=== PATIENT | female | born 1995 | race Caucasian/White ===

== ENCOUNTER → 2024-06-19 08:31 | Outpatient (REF) | payer OTHER, SELFPAY | LOC: WDC 08:31 | PROVIDERS: ATTENDING PHYSICIAN Obstetrics & Gynecology | DX: N63.20 Unspecified lump in the left breast, unspecified quadrant (principal); N64.4 Mastodynia | CPT/HCPCS: 76642 ==

== ENCOUNTER → 2024-12-24 14:29 | Outpatient (REF) | payer OTHER, SELFPAY | LOC: WDC 14:29 | PROVIDERS: ATTENDING PHYSICIAN Obstetrics & Gynecology; FAMILY PHYSICIAN Family Medicine | DX: R92.8 Other abnormal and inconclusive findings on diagnostic imaging of breast (principal); D24.9 Benign neoplasm of unspecified breast | CPT/HCPCS: 76642 ==

== ENCOUNTER 2025-01-21 06:19 | Day surgery (SDC) | payer OTHER, SELFPAY ==
[2025-01-19 13:27] VITALS: BMI 24.9
[2025-01-19 14:31] LABS: % Basophils 0.7 % (0-2); % Eosinophils 0.9 % (0-6); % Immature Granulocytes 0.3 % (0-0.5); % Lymphocytes 32.2 % (20.5-51.1); % Monocytes 4.3 % (1.7-9.3); % Neutrophils 61.6 % (42.2-75.2); Absolute Basophils 0.1 10^3/uL (0-0.2); Absolute Eosinophils 0.1 10^3/uL (0-0.7); Absolute Lymphocytes 2.2 10^3/uL (1.2-3.4); Absolute Monocytes 0.3 10^3/uL (0.1-0.6); Absolute Neutrophils 4.3 10^3/uL (1.4-6.5); Hematocrit 40.3 % (37.0-47.0); Hemoglobin 13.7 g/dL (12.0-16.0); Mean Corpuscular Hgb 30.5 pg (27.0-31.0); Mean Corpuscular Volume 89.8 fL (81.0-99.0); Nucleated Red Blood Cells % 0 %; Platelet Count 390 10^3/uL (130-400); Red Blood Cell Count 4.49 10^6/uL (4.20-5.40); Red Cell Dist. Width 13.2 % (11.5-14.5); White Blood Cell Count 6.9 10^3/uL (4.8-10.8)
[2025-01-19 14:39] LABS: HCG, Urine Qualitative Screen Negative; INR 0.92; PT 12.7 Sec (11.4-14.6)
[2025-01-19 14:40] LABS: APTT 29.7 Sec (23.4-35.0)
[2025-01-19 15:29] LABS: FSH 4.3 mIU/ml; Luteinizing Hormone 3.84 mIU/ml
[2025-01-19 15:43] LABS: TSH 2.11 uIU/ml (0.47-4.68)
[2025-01-21] VITALS (10 sets, daily range): BP systolic 86–99; BP diastolic 51–68; BMI 24.9
[2025-01-21] MEDS: TYLENOL 1000 MG PO (07:55)
[2025-01-21] MEDS: NORMOSOL-R/PLASMALYTE-A 1000 IV (07:56)
[2025-01-21] MEDS: SUBLIMAZE 25 MCG IV (13:02)
== END 2025-01-21 14:00 | disposition home or self-care (01) ==
LOC: SDS 06:19
PROVIDERS: ATTENDING PHYSICIAN Obstetrics & Gynecology; FAMILY PHYSICIAN Family Medicine
DX: D28.0 Benign neoplasm of vulva (principal); N92.6 Irregular menstruation, unspecified; N76.2 Acute vulvitis
CPT/HCPCS: 11420; 88304; 36415; 81025; 83001; 83002; 84443; 85025; 85610; 85730